=== PATIENT | male | born 1930 | race Caucasian/White ===

== ENCOUNTER → 2017-06-18 | Outpatient (CLI) | payer OTHER ==
[2016-04-19 11:00] VITALS: BP 123/73
[~2017-06-18] MED LIST: AMLO5TAB2 PO; ASPI81TA44 PO; ATEN50TA PO; DOXA4TAB3 PO; HYDR-2758 PO; KETO554C TP; LISI10TA2 PO; MULT-208 PO; PRAV40TA2 PO; VIT1TABL2 PO
--- NOTE | 2017-06-18 16:45 | RAD ---
FDG tumor localization scan, 06/18/2017: History: Pulmonary Following IV injection of 15.3 mCi of 18 F-FDG, imaging was performed from the skull base to the proximal thighs. The noncontrast CT component was performed for attenuation correction and anatomic localization purposes rather than for primary diagnosis. The patient's blood glucose level at the time of injection was 99 MG/DL. There is an irregular hypermetabolic nodule in the medial aspect of the left upper lobe abutting the pleura. It measures 2.5 cm in diameter. It demonstrates a maximum SUV of 8.0. There is low level activity at the left hilum with a maximum SUV of 2.4. There are 2 small groundglass opacities in the superior medial aspect of the right lower lobe. They both measure approximately 17 mm. They demonstrate only faint FDG activity, much less than that of the mediastinal background. No other abnormal FDG uptake is seen. No hypermetabolic mediastinal process or adenopathy is evident. Physiologic activity is present in the neck. No hypermetabolic process is seen in the neck. Normal GI tract and urinary tract activity is present in the abdomen and pelvis. No hypermetabolic abdominal or pelvic lesion is seen. Incidental CT findings include the presence of multiple bilateral renal cysts. Several small low-density hepatic lesions are also probably cysts. There is nonspecific prostatic enlargement. There is extensive calcific plaquing of the aorta and its branches including the coronary arteries. IMPRESSION: 1. Hypermetabolic left upper lobe nodule suggesting a primary lung malignancy. 2. No PET evidence of mediastinal or hilar adenopathy. 3. Two small groundglass opacities in the right lower lobe demonstrate only faint FDG uptake. 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 CT follow-up is suggested. 4. Miscellaneous CT findings as described above.
== END | disposition home or self-care (01) ==
LOC: PETSC 13:04
PROVIDERS: ATTEND Internal Medicine Pulmonary Disease
DX: R91.8 Other nonspecific abnormal finding of lung field (principal); N28.1 Cyst of kidney, acquired; N40.0 Benign prostatic hyperplasia without lower urinary tract symptoms
CPT/HCPCS: 78815; A9552

== ENCOUNTER → 2017-10-27 | Outpatient (CLI) | payer OTHER | END | disposition home or self-care (01) | LOC: CT 08:27 | DX: C34.32 Malignant neoplasm of lower lobe, left bronchus or lung (principal); R91.8 Other nonspecific abnormal finding of lung field | CPT/HCPCS: 71250 ==

== ENCOUNTER → 2018-05-06 | Outpatient (CLI) | payer OTHER ==
[2016-04-19 11:00] VITALS: BP 123/73
[~2018-05-06] MED LIST changes: -AMLO5TAB2 PO; +AMLO5TAB7 PO; -ASPI81TA44 PO; +ASPI81TA59 PO; +CHOL10002 PO; +NAPR220T70 PO
--- NOTE | 2018-05-06 13:34 | RAD ---
CT of the chest without contrast for 6 month lung cancer follow-up status post treatment. FINDINGS: There is an irregular 1.1 cm nodule in the left upper lobe posteriorly on axial image #17, which is perhaps slightly smaller than on the prior examination where it measured up to 1.3 cm transversely. There is a geographic region of subsegmental groundglass opacity in proximity to this nodule which was not present on the prior examination and may represent developing infectious or inflammatory pneumonitis. A small peripheral nodule in the left upper lobe on axial image #18 measuring roughly 3 mm is redemonstrated and unchanged. There is a second tiny nodule in axial image #22, and a third on axial image #31. The left lower lobe there is redemonstration of a 8 mm nodular opacity on axial image #30 which is grossly unchanged. Scarring is seen in the left lung base. There is a focal circumscribed right suprahilar groundglass opacity measuring 2.1 cm in maximal orthogonal dimension versus a prior measurement of 1.9 cm. A second similar-appearing groundglass nodule seen in the right posterior perihilar region on axial image 28 measures 1.8 x 1.7 cm AP and transversely, compared to prior measurements of 1.7 x 1.6 cm. There are 2 subcentimeter groundglass nodules in close proximity on axial images 25 and 27 respectively. No suspicious mediastinal, hilar, or axillary lymphadenopathy is seen. Calcified adenopathy is present in the right perihilar region suggesting antecedent granulomatous disease. Heart size is within normal limits. Extensive coronary artery calcification is identified in multiple distributions, and there is moderate multifocal atherosclerosis involving the aorta, with bulky calcified plaque in the SMA and bilateral renal arteries. Evaluation of the abdominal organs is somewhat limited by lack of IV contrast, however no morphologic abnormalities of the spleen, gallbladder, bilateral adrenal glands are identified. The pancreas is mildly atrophic. The liver is notable for several small hypodensities which are unchanged, and likely represent simple cysts. No suspicious hepatic parenchymal abnormalities are identified. Several large cysts are seen involving both kidneys, and are incompletely characterized on this noncontrast exam, but show no significant interval change. No free or loculated fluid collections are seen within the visualized portions of the upper abdomen. No suspicious adenopathy is seen in this area. No suspicious osteoblastic or osteolytic bone lesions are identified. Of note however, there is degenerative disc disease at C5-6, with bulky posterior osteophyte producing stenosis of the central spinal canal. IMPRESSION: 1. Continued slow involution of the left upper lobe lung nodule suggesting positive response to treatment. 2. Interval development of geographic groundglass opacity and proximity to this nodule, perhaps representing inflammatory or infectious pneumonitis. 3. Stable left lower lobe 8 mm pulmonary nodule. 4. Cluster of 4 right posterior perihilar groundglass nodules, the 2 largest of which have shown subtle progressive enlargement over time. 5. A few scattered stable appearing 2 to 3 mm peripheral pulmonary nodules. In the context of calcified right perihilar adenopathy, these likely represent tiny granulomas. 6. Extensive vasculopathy with severe coronary artery calcification, severe bulky calcified atherosclerosis of the bilateral renal arteries and the SMA. If this gentleman has a history of refractory hypertension or renal insufficiency, or postprandial pain and weight loss, consider renal duplex ultrasound or mesenteric duplex ultrasound study study for better evaluation. 7. Multiple stable hepatic and renal cysts, incompletely evaluated on this noncontrast study. 8. Degenerative disc disease at T5-6 with a prominent posterior calcified osteophyte producing bony central spinal canal stenosis. This is an atypical location for degenerative disc disease and osteophytosis. If the patient has signs or symptoms attributable to central canal stenosis, consider further evaluation with MRI. Electronically signed by: Nick Cabello MD (05/06/2018 1:31 PM) [id number]
== END | disposition home or self-care (01) ==
LOC: CT 08:18
PROVIDERS: ATTEND Radiology Radiation Oncology
DX: Z08 Encounter for follow-up examination after completed treatment for malignant neoplasm (principal); M51.34 Other intervertebral disc degeneration, thoracic region; M25.78 Osteophyte, vertebrae; M48.04 Spinal stenosis, thoracic region; I70.0 Atherosclerosis of aorta; I25.10 Atherosclerotic heart disease of native coronary artery without angina pectoris; N28.1 Cyst of kidney, acquired; K76.89 Other specified diseases of liver; R91.1 Solitary pulmonary nodule
CPT/HCPCS: 71250